=== PATIENT | female | born 1950 | race Caucasian/White ===

== ENCOUNTER → 2021-04-07 | Outpatient (CLI) | payer OTHER ==
[~2021-04-07] MED LIST: CYCLOBENZAPRINE5 MG PO; HYDROCHLOROTH12.5 M2 PO; NORCO 5-325 TA1 EACH PO; NORVASC 2.5 MG2.5 MG PO; NORVASC 5 MG TAB5 MG PO; TOPROL XL50 MG PO; ZOFRAN ODT4 MG PO
== END ==
LOC: SJCVC 10:58
PROVIDERS: ATTEND Internal Medicine Cardiovascular Disease
DX: I45.10 Unspecified right bundle-branch block (principal); I47.1 Supraventricular tachycardia; I10 Essential (primary) hypertension; E66.01 Morbid (severe) obesity due to excess calories; G47.33 Obstructive sleep apnea (adult) (pediatric); E78.5 Hyperlipidemia, unspecified; E55.9 Vitamin D deficiency, unspecified; Z88.5 Allergy status to narcotic agent; Z79.899 Other long term (current) drug therapy

== ENCOUNTER → 2021-05-15 | Outpatient (CLI) | payer OTHER ==
[~2021-05-15] VITALS: Ht 162.6 cm; Wt 120.2 kg
[2021-05-15 07:23] VITALS: BP 159/56
[2021-05-15 07:55] LABS: ABSOLUTE NEUTROPHILS 4.7 thou/uL (1.4-8.2); BASOPHILS 0.9 % (0.0-2.0); EOSINOPHILS 3.7 % (0.0-3.0); HEMATOCRIT 43.1 % (37.0-47.0); HEMOGLOBIN 14.3 gm/dL (12.0-15.0); LYMPHOCYTES 21.7 % (24.0-44.0); MCH 29.4 pg (26.0-34.0); MCHC 33.1 g/dL (28.0-37.0); MCV 88.7 fL (80.0-100.0); MONOCYTES 10.7 % (1.0-8.0); PLATELET COUNT 294 thou/uL (150-400); RBC 4.85 mil/uL (4.20-5.00); RDW 14.1 % (10.5-14.5); WBC 7.4 thou/uL (4.0-11.0)
[2021-05-15 08:13] LABS: APTT 24.3 Seconds (24.5-32.8); INR 0.9; PROTIME 9.6 Seconds (9.3-11.4)
[2021-05-15 08:24] LABS: CALCIUM 9.8 mg/dL (8.5-10.1); CREATININE 0.9 mg/dL (0.6-1.0); POTASSIUM 4.6 mmol/L (3.5-5.1)
[2021-05-15 08:30] LABS: ALBUMIN 3.8 g/dL (3.4-5.0); TOTAL BILIRUBIN 0.6 mg/dL (0.2-1.0); TOTAL PROTEIN 7.6 g/dL (6.4-8.2)
--- NOTE | 2021-05-18 15:45 | P ---
[facility] [place] [address] PROCEDURE REPORT Name: LADONNA HAGAN Room #: REG RALPH PittsChacorta#: [id number] Admission: 05/15/21 Attend Phys: Jmoar Trinh MD Discharge: Date of : 54 Report #: [id number] THIS REPORT FOR: cc: Laxmi Guerrero MD, Katrina MD Couchonnal, Luis F. MD ~ DATE OF SERVICE: 05/15/2021 PREOPERATIVE DIAGNOSIS: Supraventricular tachycardia. POSTOPERATIVE DIAGNOSIS: Typical atrioventricular mabel reentrant tachycardia. PROCEDURES PERFORMED: 1. Supraventricular tachycardia ablation, [address]. 2. EP with left atrial pacing recording, CPT code 04001. 3. 3D mapping, CPT code 25723. HISTORY: The patient is a 70-year-old female with history of recurrent SVT that is adenosine sensitive, she is here for ablation. ANESTHESIA: The patient underwent MAC anesthesia with no anesthesia related complications. DESCRIPTION OF PROCEDURE: The patient underwent informed consent. We discussed the details of the procedure including the risks, which include but not limited to bleeding, vascular damage, stroke, DC, and cardiac perforation. She understood these risks and is willing to proceed. The patient was brought to the EP laboratory in a fasting unsedated state, prepped and draped in a sterile fashion. I obtained access to the right femoral vein x4 placing an 8-6 and a 7-Turkish short sheath using the modified Seldinger technique. Next, I made a 3D geometry of the right atrium using the ablation catheter and then all catheters were positioned fluoroscopically. Next, a basic EP study was performed. At baseline, the patient was in sinus rhythm with a sinus cycle length of 200 milliseconds, QRS duration 100 milliseconds, QT interval 365 milliseconds, AH interval 100 milliseconds, HV interval 44 milliseconds, atrial pacing was performed from the right and left atrium. Atrial burst pacing was performed. There was evidence of right bundle-branch block aberration. Eventually with atrial burst pacing, the patient went into SVT tachycardia cycle length 370 milliseconds, septal VA time of 35 milliseconds and ventricular entrainment demonstrated a VAHV response consistent with typical AV mabel reentrant tachycardia. Next, atrial pacing was continued. AV block was noted at 280 milliseconds. Atrial ERP was noted at 200 milliseconds to [address] cycle length with atrial pacing, AVNRT was easily inducible. It was actually difficult to terminate with ventricular pacing. Next, ventricular pacing was performed and VA block was noted at [address] [facility] [address] [place] [address] PROCEDURE REPORT Name: STEVE HAGANSOL Medina [facility]: [facility] [id number] Admission: 05/15/21 Attend Phys: Jomar Trinh MD Discharge: Date of : 54 Report #: [id number] milliseconds. Ventricular ERP was noted at 200 milliseconds at a [address] cycle length. VA conduction was both midline and decremental. Next, ablation was performed using a 4 mm Biosense Ace ablation catheter placed via an SR0 catheter. I performed a total of 15 lesions, the last 7 lesions had inducible AVNRT and I would come off and terminate the tachycardia. I did about 3-4 lesions like this that would induce AVNRT and I come off the last 3 lesions showed a nice slow junctionals and the patient no longer went into AVNRT. There was never any compromise to the AV mabel conduction. Post-ablation EP study was then performed. AV block was noted at 300 milliseconds. AV mabel ERP was noted at 220 milliseconds at a [address] cycle length. Ventricular pacing was performed and VA block was noted at 330 milliseconds. VA ERP was noted at 290 milliseconds at a [address] cycle length. Aggressive atrial and ventricular pacing maneuvers were performed and SVT could no longer be induced. Post-ablation, the patient was in sinus rhythm with a sinus cycle length of 570 milliseconds, PA interval 190 milliseconds, QRS duration 90 milliseconds, QT interval 320 milliseconds, AH interval 110 milliseconds, HV interval 45 milliseconds. As such, catheters and sheaths were pulled. Hemostasis was obtained. The patient awoke neurologically and hemodynamically intact with no complications. CONCLUSIONS: 1. Successful ablation of typical AV mabel reentry tachycardia. 2. Normal SA mabel function. 3. Normal AV mabel function. 4. Normal His-Purkinje function. 5. No other inducible arrhythmias on or off isoproterenol. <ELECTRONICALLY SIGNED> By: Jomar Trinh MD 05/18/21 1545 [id number] [id number] Jomar Trinh MD /nt
== END | disposition home or self-care (01) ==
LOC: CATH 06:25
PROVIDERS: ATTEND Internal Medicine Cardiovascular Disease
DX: I47.1 Supraventricular tachycardia (principal); R00.2 Palpitations; I10 Essential (primary) hypertension; K21.9 Gastro-esophageal reflux disease without esophagitis; G47.33 Obstructive sleep apnea (adult) (pediatric); Z98.890 Other specified postprocedural states; Z79.899 Other long term (current) drug therapy; Z79.01 Long term (current) use of anticoagulants; Z88.8 Allergy status to other drugs, medicaments and biological substances; Z20.822 Contact with and (suspected) exposure to COVID-19
CPT/HCPCS: 62110; 62900; 70005

== ENCOUNTER 2021-07-28 14:31 | Inpatient (IN) | payer OTHER ==
[~2021-07-28] VITALS: Ht 165.1 cm; Wt 121.8 kg
[2021-07-28 14:40] VITALS: BP 127/85
[2021-07-28 15:33] LABS: ABSOLUTE NEUTROPHILS 4.9 thou/uL (1.4-8.2); BASOPHILS 0.6 % (0.0-2.0); EOSINOPHILS 3.8 % (0.0-3.0); HEMATOCRIT 43.4 % (37.0-47.0); HEMOGLOBIN 14.1 gm/dL (12.0-15.0); LYMPHOCYTES 21.6 % (24.0-44.0); MCH 29.3 pg (26.0-34.0); MCHC 32.6 g/dL (28.0-37.0); MCV 89.7 fL (80.0-100.0); MONOCYTES 9.1 % (1.0-8.0); PLATELET COUNT 322 thou/uL (150-400); POLYS 64.9 % (36.0-66.0); RBC 4.83 mil/uL (4.20-5.00); RDW 13.9 % (10.5-14.5); WBC 7.6 thou/uL (4.0-11.0)
[2021-07-28 15:41] LABS: ANION GAP 7 mmol/L (7-16); BUN 18 mg/dL (7-18); CALCIUM 9.8 mg/dL (8.5-10.1); CHLORIDE 104 mmol/L (98-107); CO2 29 mmol/L (21-32); CREATININE 0.9 mg/dL (0.6-1.0); GLUCOSE 104 mg/dL (74-106); POTASSIUM 3.8 mmol/L (3.5-5.1); SODIUM 140 mmol/L (136-145)
[2021-07-28 15:54] LABS: SGOT 25 U/L (15-37); SGPT 48 U/L (30-65); TOTAL BILIRUBIN 0.3 mg/dL (0.2-1.0)
[2021-07-28] MEDS ORDERED: ATORVASTATIN CA10 MG PO (16:37)
[2021-07-28] MEDS ORDERED: HYDROCHLOROTHIA25 M1 PO (16:37)
[2021-07-28] MEDS ORDERED: LISINOPRIL30 MG PO (16:38)
[2021-07-28 17:49] LABS: FOLIC ACID 11.6 ng/mL (8.6-58.9)
[2021-07-28 21:05] VITALS: BP 135/75
[2021-07-28 21:59] VITALS: BP 142/84
--- NOTE | 2021-07-28 23:28 | NUR ---
PT ARRIVED FROM THE ER @2150. A&OX4 UPADLIB. ADMISSION DONE AND PT ORIENTED TO THE UNIT. DENIES CHEST PAIN, SOB, N/V. CLR LUNGS SOUNDS. CALL LIGHT AT REACH. LASIX GIVEN IN THE ER PRIOR TO ARRIVAL. PT VOIDS ADEQUATELY IN THE BATHROOM. NO FURTHER SIGNS OF DISCOMFORT WILL CONT TO MONITOR.
[2021-07-28 23:48] VITALS: BP 124/64
[2021-07-29 03:58] VITALS: BP 108/65
[2021-07-29 04:45] LABS: CALCIUM 9.5 mg/dL (8.5-10.1); CREATININE 0.8 mg/dL (0.6-1.0); MAGNESIUM 2.2 mg/dL (1.8-2.4); POTASSIUM 3.6 mmol/L (3.5-5.1)
[2021-07-29 04:54] LABS: CHOLESTEROL 129 mg/dL (<200); HDL CHOLESTEROL 43 mg/dL (>40); LDL CHOLESTEROL 69 mg/dL (<100); TRIGLYCERIDE 87 mg/dL (<150); VLDL 17 mg/dL (<40)
[2021-07-29 05:06] LABS: ABSOLUTE NEUTROPHILS 4.5 thou/uL (1.4-8.2); BASOPHILS 0.8 % (0.0-2.0); EOSINOPHILS 3.6 % (0.0-3.0); HEMATOCRIT 43.6 % (37.0-47.0); HEMOGLOBIN 14.3 gm/dL (12.0-15.0); LYMPHOCYTES 25.4 % (24.0-44.0); MCH 29.5 pg (26.0-34.0); MCHC 32.8 g/dL (28.0-37.0); MCV 89.7 fL (80.0-100.0); MONOCYTES 9.4 % (1.0-8.0); PLATELET COUNT 300 thou/uL (150-400); POLYS 60.8 % (36.0-66.0); RBC 4.85 mil/uL (4.20-5.00); RDW 13.9 % (10.5-14.5); WBC 7.4 thou/uL (4.0-11.0)
[2021-07-29 05:25] LABS: SERUM ASSESSMENT Clear
[2021-07-29 07:00] VITALS: BP 128/80
--- NOTE | 2021-07-29 07:13 | EKG ---
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 07/29/21 0712 1434 1434 Carlos Gu MD, FAC /EPI
--- NOTE | 2021-07-29 09:51 | 2DMMODE ---
[facility] [place] [address] 2 D/M-MODE ECHOCARDIOGRAM Name: STEVE HAGANSOL Medina Room #: 211-P ADM IN ..#: [id number] Admission: 07/28/21 Attend Phys: Mukul Jaramillo MD Discharge: Date of : 54 Report #: [id number] THIS REPORT FOR: cc: Laxmi Guerrero MD, Katrina MD Santiago, Patrick MD [facility] ~ APPROVED REPORT Study performed: 07/29/2021 07:18:58 EXAM: Comprehensive 2D, Doppler, and color-flow Echocardiogram Patient Location: Bedside Room #: 211 Status: routine BSA: 2.24 HR: 71 bpm BP: 108/65 mmHg Rhythm: NSR Other Information Study Quality: Good Indications Palpitations, Chest pain, edema. Hx: SVT/Ablation. HTN, HLP, morbid obesity. 2D Dimensions IVSd: 10.85 (7-11mm) LVOT Diam: 19.59 (18-24mm) LVDd: 36.73 mm PWd: 9.68 (7-11mm) Ascending Ao: 30.43 (22-36mm) LVDs: 25.33 (25-40mm) Left Atrium: 30.91 (27-40mm) Aortic Root: 32.01 mm Volumes Left Atrial Volume (Systole) Single Plane 4CH: 41.96 mL Single Plane 2CH: 49.86 mL LA ESV Index: 22.00 mL/m2 Aortic Valve AoV Peak Cody.: 1.50 m/s AO Peak Gr.: 8.95 mmHg LVOT Max P.60 mmHg LVOT Max V: 1.07 m/s DEBBIE Vmax: 2.[address] [facility] [address] [address] 2 D/M-MODE ECHOCARDIOGRAM Name: HAGANOLGAMARY Medina Room #: [facility]#: [id number] Admission: 07/28/21 Attend Phys: Mukul Jaramillo MD Discharge: Date of : 54 Report #: [id number] Mitral Valve E/A Ratio: 0.7 MV Decel. Time: 275.59 ms MV E Max Cody.: 0.69 m/s MV A Cody.: 0.95 m/s MV PHT: 79.92 ms IVRT: 86.51 ms Pulmonary Valve PV Peak Cody.: 0.96 m/s PV Peak Gr.: 3.69 mmHg Pulmonary Vein P Vein S: 0.45 m/s P Vein D: 0.33 m/s P Vein S/D Ratio: 1.36 Tricuspid Valve TR Peak Cody.: 2.56 m/s TR Peak Gr.: 26.12 mmHg Left Ventricle The left ventricle is normal size. There is normal LV segmental wall motion. There is normal left ventricular wall thickness. Left ventricular systolic function is normal. LVEF is 60-65%. Mild diastolic dysfunction is present (impaired relaxation pattern). Right Ventricle The right ventricle is normal size. The right ventricular systolic function is normal. Atria The left atrium size is normal. The right atrium size is normal. Aortic Valve The aortic valve is normal in structure. No aortic regurgitation is present. There is no aortic valvular stenosis. Mitral Valve The mitral valve is normal in structure. There is no mitral valve regurgitation noted. No evidence of mitral valve stenosis. Tricuspid Valve The tricuspid valve is normal in structure. Mild tricuspid [facility] [employer] [place] [address] 2 D/M-MODE ECHOCARDIOGRAM Name: LADONNA HAGAN Adam Room #: 211-P [facility] IN [facility]#: [id number] Admission: 07/28/21 Attend Phys: Mukul Jaramillo MD Discharge: Date of : 54 Report #: [id number] regurgitation. Estimated PAP is 26mmHg. Pulmonic Valve The pulmonary valve is normal in structure. There is no pulmonic valvular regurgitation. Great Vessels The aortic root is normal in size. The ascending aorta is normal in size. IVC is not well visualized. Pericardium There is no pericardial effusion. <Conclusion> Normal left ventricle size/wall thickness Ejection fraction 60% Grade 1 diastolic dysfunction Normal right ventricle size/function Normal aortic/mitral valve structure and function Mild tricuspid valve insufficiency Pulmonary systolic pressure estimated 26 mmHg No pericardial effusion Normal aortic root size <ELECTRONICALLY SIGNED> By: Carlos Gu MD, FACC 07/29/21950 0 0 Carlos Gu MD, FACC /INF
[2021-07-29 11:30] VITALS: BP 125/68
[2021-07-29 15:30] VITALS: BP 94/54
[2021-07-29 19:38] VITALS: BP 104/53
[2021-07-30 04:43] VITALS: BP 119/61
--- NOTE | 2021-07-30 04:49 | NUR ---
pt resting quietly in room thru the noc, w/o c/o pain, plan 2nd phase of stress test this am, npo since mnoc, vss, will con't to monitor per ppoc.
[2021-07-30 08:11] VITALS: BP 130/71
[2021-07-30 12:33] VITALS: BP 133/55
[2021-07-30 14:38] VITALS: BP 133/55
--- NOTE | 2021-07-30 14:55 | NUR ---
PATIENT GIVEN DISCHARGE INSTRUCTIONS, QUESTIONS AND CONCERNS WERE ALL ADDRESSED. DR. RAO SPOKE WITH PATIENT AND PROVIDED STRESS TEST RESULTS. IV ACCESS AND TELEMTRY DISCONTINUED. PATIENT'S TO PROVIDE TRANSPORTATION HOME.
== END 2021-07-30 16:30 | disposition home or self-care (01) | DRG 303 ==
LOC: ER 14:31 → 2N 16:15 → EROBS 16:15 → 2N 21:43
PROVIDERS: Emergency Medicine; Nurse Practitioner; ADMIT Hospitalist; ATTEND Hospitalist
DX: I25.10 Atherosclerotic heart disease of native coronary artery without angina pectoris (principal); Z68.41 Body mass index [BMI] 40.0-44.9, adult; R00.2 Palpitations; Z88.8 Allergy status to other drugs, medicaments and biological substances; Z79.899 Other long term (current) drug therapy; E78.5 Hyperlipidemia, unspecified; E66.9 Obesity, unspecified; I10 Essential (primary) hypertension; G47.33 Obstructive sleep apnea (adult) (pediatric); Z90.49 Acquired absence of other specified parts of digestive tract
CPT/HCPCS: 10081